=== PATIENT | male | born 1955 | race Caucasian/White ===

== ENCOUNTER 2024-06-14 09:17 | Observation (INO) ==
[2024-06-14] MEDS ORDERED: METHYLPREDNISOLONE SOD SUCC/PF 125 MG/2 ML VIAL ONE (09:23)
--- NOTE | 2024-06-14 09:26 | Emergency Department Note ---
HPI - URI/Sore Throat General Chief Complaint: SOB -Shortness of Breath Stated Complaint: SOB Time Seen by Provider: 06/14/24 09:19 Source: patient Limitations: no limitations History of Present Illness HPI Narrative: This is a 69 year old male patient that presents to the ER with c/o cough, congestion and SOB this morning. Patient states he has hx of COPD. Patient states he has been doing neb tx at home earlier this morning. Patient denies any chest pain, back pain, abdominal pain, fever, chills, numbness, tingling, weakness or N/V/D MD elicited complaint: Reports cough, rhinorrhea and nasal congestion Onset (ago): hour(s) (24) Exacerbating factors: Reports nothing Relieving factors: Reports nothing Associated symptoms: Reports rhinorrhea, nasal congestion, cough and shortness of breath Related Data Home Medications Medication Instructions Recorded Confirmed apixaban 5 mg tablet 5 mg PO BID 04/27/24 06/04/24 aspirin 81 mg tablet,delayed 81 mg PO DAILY 04/27/24 06/04/24 release cetirizine 10 mg tablet 10 mg PO DAILY 04/27/24 06/04/24 cholecalciferol (vitamin D3) 25 25 mcg PO DAILY 04/27/24 06/04/24 mcg (1,000 unit) capsule folic acid 1 mg tablet 1 mg PO DAILY 04/27/24 06/04/24 gabapentin 300 mg capsule 300 mg PO DAILY 04/27/24 06/04/24 glipizide 10 mg tablet 10 mg PO BID 04/27/24 06/04/24 losartan 25 mg tablet 25 mg PO DAILY 04/27/24 06/04/24 meloxicam 7.5 mg tablet 7.5 mg PO DAILY PRN arthritis pain 04/27/24 06/04/24 metformin 500 mg tablet 500 mg PO DAILY 04/27/24 06/04/24 metoprolol succinate 50 mg 50 mg PO DAILY 04/27/24 06/09/24 tablet,extended release 24 hr pantoprazole 40 mg tablet,delayed 40 mg PO DAILY 04/27/24 06/09/24 release (Protonix) rosuvastatin 5 mg tablet 5 mg PO BEDTIME 04/27/24 06/04/24 tamsulosin 0.4 mg capsule 0.4 mg PO DAILY 04/27/24 06/04/24 thiamine HCl (vitamin B1) 100 mg 100 mg PO DAILY 04/27/24 06/04/24 tablet vitamin B complex (Vitamins B 1 tab PO DAILY 04/27/24 06/04/24 Complex tablet) vitamins A,C,C-jbvg-nsfjdx 4,296 1 cap PO BID 04/27/24 06/04/24 mcg-226 mg-90 mg capsule (PreserVision AREDS) polyethylene glycol 3350 17 17 g PO DAILY PRN constipation 06/09/24 06/09/24 gram/dose oral powder (Miralax) Previous Rx's Medication Instructions Recorded budesonide-formoterol HFA 160 2 puff inhalation Q12H copd #10.2 04/29/24 mcg-4.5 mcg/actuation aerosol grams inhaler (Symbicort) benzonatate 200 mg capsule 200 mg PO TID PRN cough #50 caps 06/05/24 ipratropium 0.5 mg-albuterol 3 mg 3 ml inhalation RQ4 copd #50 mL 06/05/24 (2.5 mg base)/3 mL nebulization soln Allergies Allergy/AdvReac Type Severity Reaction Status Date / Time No Known Drug Allergies Allergy Verified 06/14/24 09:39 Review of Systems Status of ROS 10 or more systems reviewed and unremark able except as noted in history and below Constitutional Denies: fever, chills, change in weight, fatigue or malaise Eyes Denies: change in vision, blurry vision, blind spots, light sensitivity or eye discomfort Ears, nose, mouth, and throat Denies: throat pain, neck pain, throat swelling, difficulty swallowing or hoarseness Cardiovascular Denies: chest pain, palpitations, edema, swelling of feet/ankles, lightheadedness, shortness of breath with exertion or shortness of breath when lying down Respiratory Reports: shortness of breath and cough Gastrointestinal Denies: abdominal pain, nausea, vomiting, coffee grounds in vomit or heartburn Genitourinary Denies: painful urination, urinary frequency, urinary urgency or blood in urine Musculoskeletal Denies: back pain, neck pain, extremity pain, extremity swelling, joint pain or limited range of motion Integumentary/Breast Denies: rash, itching, redness, skin pain or skin tenderness Neurological Denies: headache, numbness in extremities, weakness in extremities or lack of coordination Psychiatric Denies: anxiety, mood swings, panic attacks, change in sleep pattern or hopelessness Endocrine Denies: excessive urination, excessive thirst, fatigue, cold intolerance or excessive sweating Hematologic/Lymphatic Denies: easy bruising, easy bleeding or enlarged lymph nodes Allergic/Immunologic Denies: hives, throat swelling, tongue swelling or facial swelling PFSH PFS Medical History GERD (gastroesophageal reflux disease) 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 has not smoked in past two days) Non-prescribed substance use: denies use What is your current living situation: I presently have a place to live Problems where you live: no known problems Highest level of school completed/degree received: decline to answer Little interest or pleasure in doing things: not at all Feeling down, depressed, or hopeless: not at all Feel stressed/tense/nervous/anxious/difficulty sleeping: not at all Life stressor details: Current medical condition Due to disability, difficulty making decisions: No Exam Constitutional: normal general appearance and no apparent distress Vital Signs - 24 hr 06/14/24 09:17 06/14/24 09:30 06/14/24 10:00 Temperature 97.8 F 97.8 F Pulse Rate 137 H 130 H 120 H Respiratory Rate 32 H 30 H 26 H Blood Pressure 150/87 114/80 111/72 Pulse Oximetry 98 99 99 Oxygen Delivery Me thod Non Rebreather Non Rebreather Nasal Cannula Oxygen Flow Rate 15 15 3 06/14/24 10:24 06/14/24 10:30 Temperature Pulse Rate 116 H Respiratory Rate 19 Blood Pressure 105/69 Pulse Oximetry 95 97 Oxygen Delivery Me thod Nasal Cannula Oxygen Flow Rate 3 HENMT: normocephalic, head/scalp atraumatic, hearing grossly normal bilatera lly, external ears normal, nasal mucous membranes normal, external nose normal, oral mucous membranes normal and oropharynx normal Eyes: PERRL, EOMs intact bilaterally, conjunctivae normal and no scleral icterus Neck/C-Spine: visual inspection normal and trachea midline Lymph: no lymphadenopathy noted Chest: inspection of chest normal Respiratory: breath sounds equal bilaterally, normal respiratory effort, auscultation abnormal (diminished breath sound), wheezing noted (scattered wheezes), no rales, no retractions, no use of accessory muscles and chest percussion normal Cardiovascular: heart rate abnormal (tachycardic), regular rhythm noted, no gallop, no rub, no murmur, no JVD, no clicks, peripheral pulses 2+ throughout and no additional abnormal heart sounds Gastrointestinal: abdomen normal to inspection, abdomen soft to palpation, nontender to palpation, nontender to percussion, nondistended, normoactive bowel sounds, no hepatosplenomegaly, no masses, no pulsatile mass, no ascites and no hernia Genitourinary: no CVA tenderness Back/Pelvis: spine normal to inspection Extremities: 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), normal to palpation, no tenderness, full ROM, no joint enlargement and no deformity Neurology: speech normal, no fasciculations noted and GCS normal Psychiatry: mental status grossly normal, oriented x3, thought process normal, cooperative and affect normal Skin: skin color normal Course Course Hospital Course: 1034: due to ongoing need for oxygen demand will admit patient to the hospital for further evaluation and treatment. Reevaluation(s) Reevaluation #1: 1102: patient feeling better, no s/s of acute distress noted Vital Signs Vital signs: Vital Signs Temperature 97.8 F 06/14/24 09:17 Pulse Rate 137 H 06/14/24 09:17 Respiratory Rate 32 H 06/14/24 09:17 Blood Pressure 150/87 06/14/24 09:17 Pulse Oximetry 98 06/14/24 09:17 Oxygen Delivery Method Non Rebreather 06/14/24 09:17 Oxygen Flow Rate 15 06/14/24 09:17 Temperature 97.8 F 06/14/24 09:30 Pulse Rate 116 H 06/14/24 10:30 Respiratory Rate 19 06/14/24 10:30 Blood Pressure 105/69 06/14/24 10:30 Pulse Oximetry 97 06/14/24 10:30 Oxygen Delivery Method Nasal Cannula 06/14/24 10:30 Oxygen Flow Rate 3 06/14/24 10:30 MDM - URI/Sore Throat Differential Diagnosis Upper Respiratory Differential Diagnosis: upper respiratory infection Medical Records [facility] Medical Records Attestation: I reviewed the patient's medical records. Lab Data Attestation: I reviewed the patient's lab results. Labs: Lab Results 06/14/24 06/14/24 Range/Units 09:30 09:30 WBC 12.4 H (3.7-9.6) K/uL RBC 5.1 (4.40-5.80) M/uL Hgb 13.7 L (14.0-17.4) gm/dL Hct 42.7 (41.3-50.1) % MCV 83.6 (81.9-96.5) fl MCH 26.9 L (27.6-33.7) pg MCHC 32.2 L (33.0-35.7) g/dl RDW 16.2 H (11.0-14.8) % Plt Count 219 (142-355) K/uL MPV 8.6 (6.0-10.4) fl Gran % 74.7 H (49.1-73.1) % Lymph % (Auto) 16.0 L (17.6-39.05) % [place] % (Auto) 7.0 (4.5-10.7) % Eos % (Auto) 1.8 (0.0-4.0) % Baso % (Auto) 0.5 (0.0-1.3) Lymph # (Auto) 2.0 (0.8-2.9) [place] # (Auto) 0.9 H (0.2-0.8) Eos # (Auto) 0.2 (0.0-0.3) Baso # (Auto) 0.1 (0.0-0.1) Absolute Gran (auto) 9.3 H (2.0-6.2) D-Dimer <100 L (100-600) ng/mL ABG pH 7.31 L (7.35-7.45) ABG pCO2 48 H (35-45) mmHg ABG pO2 302 H 653 (60-100) mmHg ABG PO2/FiO2 Ratio 0.46 ABG HCO3 24.2 (22-26) mmo1/L ABG Total CO2 25.7 mmo1/L ABG O2 Saturation 100 (92-100) % ABG Base Excess 2.4 H (-2-2) mmo1/L A-a O2 Gradient 351 mmHg Respiratory Index 1.2 H (0-1) FiO2 100 % Sodium 139 (136-145) mmol/L Potassium 4.0 (3.6-5.2) mmol/L Chloride 102.0 (98-107) mmol/L Carbon Dioxide 25 (21-32) mmol/L Anion Gap 12.0 (4-14) mEq/L BUN 13 (7-18) mg/dL Creatinine 0.9 (0.6-1.3) mg/dL Estimated GFR 92.5 (>59.9) Glucose 285 H (70-110) mg/dL Lactic Acid 2.6 H (0.27-1.43) mmol/L Calcium 8.2 L (8.5-10.1) mg/dL Total Bilirubin 0.63 (0.0-1.0) mg/dL AST 49 H (15-37) U/L ALT 57 (30-65) U/L Alkaline Phosphatase 158 H (50-136) U/L B-Natriuretic Peptide 493.0 H (0-100) pg/mL Total Protein 6.3 L (6.4-8.2) g/dL Albumin 3.1 L (3.4-5.0) g/dL COVID-19 ([facility]) Not detected (Not Detectd) Influenza Type A Ag Negative (Negative) Influenza Type B Ag Negative (Negative) Discharge Plan Discharge Chief Complaint: SOB -Shortness of Breath
[2024-06-14] MEDS ORDERED: IPRATROPIUM/ALBUTEROL SULFATE 3 ML AMPUL.NEB INH ONE (09:27)
[2024-06-14] MEDS: METHYLPREDNISOLONE SOD SUCC/PF 125 MG/2 ML VIAL IVP ONE (09:30)
[2024-06-14 09:46] LABS: Basophils #(Absolute) Auto 0.1 (0.0-0.1); Basophils%(Percent) Auto 0.5 (0.0-1.3); Eosinophils#(Absolute)Auto 0.2 (0.0-0.3); Eosinophils%(Percent) Auto 1.8 % (0.0-4.0); Granulocytes % - Auto 74.7 % (49.1-73.1); Granulocytes#(Absolute)- Auto 9.3 (2.0-6.2); Hematocrit 42.7 % (41.3-50.1); Mean Corpuscular Volume 83.6 fl (81.9-96.5); Monocytes #(Absolute)- Auto 0.9 (0.2-0.8); Platelet Count 219 K/uL (142-355); White Blood Count 12.4 K/uL (3.7-9.6)
[2024-06-14] MEDS: IPRATROPIUM/ALBUTEROL SULFATE 3 ML AMPUL.NEB INH ONE ×2 (10:22→15:07)
[2024-06-14 10:28] LABS: Base Excess ABG 2.4 mmo1/L (-2-2); Oxygen Saturation ABG 100 % (92-100); PCO2 ABG 48 mmHg (35-45); PO2 ABG 302 mmHg (60-100); pH ABG 7.31 (7.35-7.45)
[2024-06-14] MEDS ORDERED: SODIUM CHLORIDE IV ONE (10:46)
[2024-06-14] MEDS ORDERED: CEFTRIAXONE SODIUM 1 GM VIAL ONE (10:46)
[2024-06-14] MEDS ORDERED: 0.9 % SODIUM CHLORIDE MB+ 50 ML IV ONE (10:48)
[2024-06-14] MEDS: CEFTRIAXONE SODIUM 1 GM in 0.9 % SODIUM CHLORIDE MB+ 50 ML IV STA (10:48)
[2024-06-14] MEDS ORDERED: 0.9 % SODIUM CHLORIDE 250 ML IV ONE (10:51)
[2024-06-14] MEDS: 0.9 % SODIUM CHLORIDE 100 ML IV.SOLN IV ONE (11:07)
[2024-06-14] MEDS: IPRATROPIUM/ALBUTEROL SULFATE 3 ML AMPUL.NEB INH SCH (15:00)
[2024-06-14] MEDS: ATORVASTATIN CALCIUM 10 MG TABLET PO SCH (20:50)
[2024-06-14] MEDS: APIXABAN 2.5 MG TABLET PO SCH (20:50)
[2024-06-14] MEDS ORDERED: GLIPIZIDE 10 MG PO SCH (21:00)
[2024-06-14] MEDS ORDERED: ROSUVASTATIN 5 MG PO SCH (21:00)
[2024-06-15] MEDS: GUAIFENESIN/DEXTROMETHORPHAN 20/200MG/10 ML SOLUTION PO PRN (04:54)
[2024-06-15 05:37] LABS: Basophils #(Absolute) Auto 0.1 (0.0-0.1); Basophils%(Percent) Auto 0.6 (0.0-1.3); Eosinophils#(Absolute)Auto 0.1 (0.0-0.3); Eosinophils%(Percent) Auto 0.6 % (0.0-4.0); Granulocytes % - Auto 76.5 % (49.1-73.1); Granulocytes#(Absolute)- Auto 7.9 (2.0-6.2); Hematocrit 36.8 % (41.3-50.1); Mean Corpuscular Volume 82.1 fl (81.9-96.5); Monocytes #(Absolute)- Auto 0.8 (0.2-0.8); Monocytes %(Percent)- Auto 7.3 % (4.5-10.7); Platelet Count 197 K/uL (142-355); White Blood Count 10.3 K/uL (3.7-9.6)
[2024-06-15 06:10] LABS: Potassium 3.5 mmol/L (3.6-5.2)
[2024-06-15] MEDS: ASPIRIN 81 MG TABLET.DR PO SCH (09:21)
[2024-06-15] MEDS: LOSARTAN POTASSIUM 50 MG TABLET PO SCH (09:21)
[2024-06-15] MEDS: CEFTRIAXONE SODIUM 1 GM in 0.9 % SODIUM CHLORIDE MB+ 50 ML IV SCH (09:21)
[2024-06-15] MEDS: METFORMIN HCL 500 MG TABLET PO SCH (09:21)
[2024-06-15] MEDS: METHYLPREDNISOLONE SOD SUCC/PF 40 MG/ML VIAL INJ SCH (09:21)
[2024-06-15] MEDS: GLIMEPIRIDE 2 MG TABLET PO SCH (09:21)
[2024-06-15] MEDS: GABAPENTIN 300 MG CAPSULE PO SCH (09:22)
[2024-06-15] MEDS: TAMSULOSIN HCL 0.4 MG CAPSULE PO SCH (09:22)
[2024-06-15] MEDS: METOPROLOL SUCCINATE 25 MG TAB.ER.24H PO SCH (09:22)
[2024-06-15] MEDS: POTASSIUM CHLORIDE 20 MEQ TAB.ER.PRT PO ONE (11:31)
--- NOTE | 2024-06-15 14:03 | History & Physical Report ---
H&P: HPI History of Present Illness Chief complaint: copd exacerbation Narrative: This is a 69 year old male patient that presents to the ER with c/o cough, congestion and SOB this morning seen in the ER for the last 3 days daily secondary to issues with breathing and cough. Patient states he has hx of COPD poorly controlled [facility] [place] Patient states he has been doing neb tx at home earlier this morning and using his inhalers often secondary to trouble breathing and feeling smothered. Patient denies any chest pain, back pain, abdominal pain, fever, chills, numbness, tingling, weakness or N/V/D MD elicited complaint: Reports cough, rhinorrhea and nasal congestion Review of Systems Status of ROS 10 or more systems reviewed and unremark able except as noted in history and below Constitutional Reports: fatigue, night sweats and change in sleep pattern; Denies: fever, chills, change in weight or malaise Eyes Denies: change in vision, blurry vision, blind spots, light sensitivity or eye discomfort Ears, nose, mouth, and throat Reports: dry mouth; Denies: throat pain, neck pain, throat swelling, difficulty swallowing, hoarseness, mouth pain or swelling of lips/tongue Cardiovascular Reports: shortness of breath with exertion and shortness of breath when lying down; Denies: chest pain, palpitations, edema, swelling of feet/ankles or lightheadedness Respiratory Reports: shortness of breath, cough, wheezing, change in phlegm color and chest congestion; Denies: stridor, pain on inspiration or coughing up blood Gastrointestinal Reports: nausea; Denies: abdominal pain, vomiting, coffee grounds in vomit, heartburn, diarrhea, constipation, bloating or difficulty swallowing Genitourinary Denies: painful urination, urinary frequency, urinary urgency or blood in urine Musculoskeletal Denies: back pain, neck pain, extremity pain, extremity swelling, joint pain or limited range of motion Integumentary/Breast Denies: rash, itching, redness, skin pain or skin tenderness Neurological Reports: weakness in extremities (rt foot pain and sore on heel not healing and AKA left leg), behavioral changes and difficulty communicating thoughts; Denies: headache, numbness in extremities, lack of coordination, dizziness, vertigo or confusion Psychiatric Denies: anxiety, mood swings, panic attacks, change in sleep pattern or hopelessness Endocrine Denies: excessive urination, excessive thirst, fatigue, cold intolerance or excessive sweating Hematologic/Lymphatic Denies: easy bruising, easy bleeding or enlarged lymph nodes Allergic/Immunologic Reports: wheezing; Denies: hives, throat swelling, tongue swelling or facial swelling [facility] History (Updated 06/15/24 @ 14:28 by Kristine Espino DO) Urinary retention GERD (gastroesophageal reflux disease) 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 has not smoked in past two days) Non-prescribed substance use: denies use What is your current living situation: I presently have a place to live Problems where you live: no known problems Highest level of school completed/degree received: high school Little interest or pleasure in doing things: not at all Feeling down, depressed, or hopeless: not at all Feel stressed/tense/nervous/anxious/difficulty sleeping: not at all Life stressor details: Current medical condition Due to disability, difficulty making decisions: No Meds Home Medications and Allergies Home Medications Medication Instructions Recorded Confirmed Type apixaban 5 mg tablet 5 mg PO BID 04/27/24 06/04/24 History aspirin 81 mg tablet,delayed 81 mg PO DAILY 04/27/24 06/04/24 History release cetirizine 10 mg tablet 10 mg PO DAILY 04/27/24 06/04/24 History cholecalciferol (vitamin D3) 25 25 mcg PO DAILY 04/27/24 06/04/24 History mcg (1,000 unit) capsule folic acid 1 mg tablet 1 mg PO DAILY 04/27/24 06/04/24 History gabapentin 300 mg capsule 300 mg PO DAILY 04/27/24 06/04/24 History glipizide 10 mg tablet 10 mg PO BID 04/27/24 06/04/24 History losartan 25 mg tablet 25 mg PO DAILY 04/27/24 06/04/24 History meloxicam 7.5 mg tablet 7.5 mg PO DAILY PRN arthritis pain 04/27/24 06/04/24 History metformin 500 mg tablet 500 mg PO DAILY 04/27/24 06/04/24 History metoprolol succinate 50 mg 50 mg PO DAILY 04/27/24 06/09/24 History tablet,extended release 24 hr pantoprazole 40 mg tablet,delayed 40 mg PO DAILY 04/27/24 06/09/24 History release (Protonix) rosuvastatin 5 mg tablet 5 mg PO BEDTIME 04/27/24 06/04/24 History tamsulosin 0.4 mg capsule 0.4 mg PO DAILY 04/27/24 06/04/24 History thiamine HCl (vitamin B1) 100 mg 100 mg PO DAILY 04/27/24 06/04/24 History tablet vitamin B complex (Vitamins B 1 tab PO DAILY 04/27/24 06/04/24 History Complex tablet) vitamins A,C,O-uief-tudpte 4,296 1 cap PO BID 04/27/24 06/04/24 History mcg-226 mg-90 mg capsule (PreserVision AREDS) budesonide-formoterol HFA 160 2 puff inhalation Q12H copd #10.2 04/29/24 06/04/24 Rx mcg-4.5 mcg/actuation aerosol grams inhaler (Symbicort) benzonatate 200 mg capsule 200 mg PO TID PRN cough #50 caps 06/05/24 Rx ipratropium 0.5 mg-albuterol 3 mg 3 ml inhalation RQ4 copd #50 mL 06/05/24 Rx (2.5 mg base)/3 mL nebulization soln polyethylene glycol 3350 17 17 g PO DAILY PRN constipation 06/09/24 06/09/24 History gram/dose oral powder (Miralax) Allergies Allergy/AdvReac Type Severity Reaction Status Date / Time No Known Drug Allergies Allergy Verified 06/14/24 09:39 Exam Constitutional: abnormal general appearance (disheveled), (chronically ill) and (appears older than stated age), no apparent distress, average body habitus, limitations noted (behavioral limitations) and (physical limitations) and alert Vital Signs - 24 hr 06/14/24 16:00 06/14/24 16:17 06/14/24 17:05 Temperature 98.1 F Pulse Rate [Right Radial] 113 H Respiratory Rate 19 Blood Pressure [Ri ght Arm] 96/62 Pulse Oximetry 98 96 95 Oxygen Delivery Me thod Nasal Cannula Nasal Cannula Oxygen Flow Rate 3 3 Fraction of Inspir ed Oxygen 32 06/14/24 19:48 06/14/24 20:12 06/14/24 20:14 Temperature 98.2 F Pulse Rate [Right Radial] 94 H Respiratory Rate 19 Blood Pressure [Ri ght Arm] 106/73 Pulse Oximetry 96 98 98 Oxygen Delivery Me thod Room Air Nasal Cannula Oxygen Flow Rate 3 Fraction of Inspir ed Oxygen 32 06/14/24 23:36 06/14/24 23:48 06/15/24 03:41 Temperature 98.9 F Pulse Rate [Right Radial] 107 H Respiratory Rate 17 Blood Pressure [Ri ght Arm] 87/50 Pulse Oximetry 97 97 97 Oxygen Delivery Me thod Nasal Cannula Oxygen Flow Rate Fraction of Inspir ed Oxygen 06/15/24 03:49 06/15/24 08:00 06/15/24 08:57 Temperature 97.8 F 98.2 F Pulse Rate [Right Radial] 100 H 104 H Respiratory Rate 19 18 Blood Pressure [Ri ght Arm] 101/75 97/66 Pulse Oximetry 96 99 97 Oxygen Delivery Me thod Nasal Cannula Nasal Cannula Oxygen Flow Rate 3 Fraction of Inspir ed Oxygen 06/15/24 08:58 06/15/24 12:00 06/15/24 12:20 Temperature 98.4 F Pulse Rate [Right Radial] 110 H Respiratory Rate 18 Blood Pressure [Ri ght Arm] 104/76 Pulse Oximetry 97 92 L 95 Oxygen Delivery Me thod Nasal Cannula Room Air Oxygen Flow Rate 3 Fraction of Inspir ed Oxygen 32 HENMT: normocephalic, head/scalp atraumatic, hearing grossly abnormal, e xternal ears normal, nasal mucous membranes normal, external nose normal, oral mucous membranes abnormal, oropharynx abnormal, dentition abnormal and gingiva normal Eyes: PERRL, EOMs intact bilaterally, conjunctivae normal, no scleral icterus, papilledema noted and alignment normal Neck/C-Spine: trachea midline, cervical spine nontender, abnormal cervical ROM noted, supple, no meningeal signs, thyroid normal and no carotid bruits Lymph: no lymphadenopathy noted and no lymphedema noted Chest: inspection of chest normal and palpation of chest normal Respiratory: breath sounds equal bilaterally, abnormal respiratory effort (labored), auscultation abnormal (diminished breath sound), wheezing noted (scattered wheezes), no rales, retractions noted, no use of accessory muscles and chest percussion normal Cardiovascular: heart rate abnormal (tachycardic), regular rhythm noted, no gallop, no rub, no murmur, no JVD, no clicks, peripheral pulses 2+ throughout, no bruits noted and no additional abnormal heart sounds Gastrointestinal: abdomen normal to inspection, abdomen soft to palpation, nontender to palpation, nontender to percussion, nondistended, normoactive bowel sounds, no hepatosplenomegaly, no masses, no pulsatile mass, no ascites and no hernia Genitourinary: no CVA tenderness, bladder normal to palpation and external appearance normal Back/Pelvis: no thoracic spine tenderness, no lumbar spine tenderness, thoracic spine ROM abnormal and lumbar spine ROM abnormal Extremities: 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), normal to palpation, tenderness noted (right foot and heel painful to touch), abnormal ROM noted (left AKA), no joint enlargement and deformity noted Neurology: office manager II-XII intact, no movement abnormality noted, sensory deficit noted, deep tendon reflexes as noted:, gait abnormality noted (waiting on a prosthesis) (unable to access), speech normal, coordination abnormality noted, no fasciculations noted and GCS normal Psychiatry: mental status abnormal other, oriented x3, thought process abnormality noted, cooperative, affect normal, psychomotor abnormality noted and memory normal Life stressors: financial matters Life stressor details: needing more care than he can get at home and needing rehab Due to disability, difficulty making decisions: Yes Skin: skin color normal, no rash, no lesions, ecchymosis noted, wound(s) noted (boggy right heal and stage 1 red toes cold) Reports (superficial), skin turgor abnormal Reports (tenting), no jaundice, no petechiae, no mottling and nails abnormality noted Assessment and Plan Assessment and Plan (1) Constipation: Qualifiers: Constipation type: unspecified constipation type Qualified Code(s): K59.00 - Constipation, unspecified Code(s): K59.00 - Constipation, unspecified (2) Hypoxemia: Code(s): R09.02 - Hypoxemia (3) COPD with exacerbation: Code(s): J44.1 - Chronic obstructive pulmonary disease with (acute) exacerbation (4) Diabetes type 2 with atherosclerosis of arteries of extremities: Code(s): E11.51 - Type 2 diabetes mellitus with diabetic peripheral angiopathy without gangrene; I70.209 - Unspecified atherosclerosis of council arteries of extremities, unspecified extremity (5) CHF (congestive heart failure): Qualifiers: Heart failure type: unspecified Heart failure chronicity: unspecified Qualified Code(s): I50.9 - Heart failure, unspecified Code(s): I50.9 - Heart failure, unspecified (6) Hypertension: Qualifiers: Hypertension type: primary hypertension Qualified Code(s): I10 - Esse ntial (primary) hypertension Code(s): I10 - Essential (primary) hypertension Plan Apixaban 5 mg PO BID Cetirizine Hcl 10 mg PO Daily Gabapentin 300 mg PO Daily Glimepiride 8 mg PO Daily Losartan Potassium 25 mg PO Daily Metformin Hcl 500 mg PO Daily HOLD Metoprolol Succinate 25 mg PO BID Atorvastatin Calcium 10 mg PO Bedtime Tamsulosin Hcl 0.4 mg PO Daily Vitamins A,C,F-Xxms-Qijwfp 4,296 mg (1) cap PO BID Albuterol Sulfate 3 ml INH RQ4 PRN Methylprednisolone Sodium Succinate 80 mg INJ Q8H Acetaminophen 500 mg PO Q6H PRN Insulin Regular sliding scale SUBQ PRN Chlorphenir/Hydrocodone Polistirex 5 mg PO Q12H PRN IV FLUIDS 0.9% CONTINUOUS duo nebs every 4 hours pulmicort every 12 hours cardiac and continuous pulse ox Results Labs Labs: CBC WBC 10.3 K/uL (3.7-9.6) H 06/15/24 04:45 RBC 4.5 M/uL (4.40-5.80) 06/15/24 04:45 Hgb 12.3 gm/dL (14.0-17.4) L 06/15/24 04:45 Hct 36.8 % (41.3-50.1) L 06/15/24 04:45 MCV 82.1 fl (81.9-96.5) 06/15/24 04:45 MCH 27.5 pg (27.6-33.7) L 06/15/24 04:45 MCHC 33.5 g/dl (33.0-35.7) 06/15/24 04:45 RDW 16.3 % (11.0-14.8) H 06/15/24 04:45 Plt Count 197 K/uL (142-355) 06/15/24 04:45 MPV 8.5 fl (6.0-10.4) 06/15/24 04:45 Gran % 76.5 % (49.1-73.1) H 06/15/24 04:45 Lymph % (Auto) 15.0 % (17.6-39.05) L 06/15/24 04:45 [place] % (Auto) 7.3 % (4.5-10.7) 06/15/24 04:45 Eos % (Auto) 0.6 % (0.0-4.0) 06/15/24 04:45 Baso % (Auto) 0.6 (0.0-1.3) 06/15/24 04:45 Lymph # (Auto) 1.5 (0.8-2.9) 06/15/24 04:45 [place] # (Auto) 0.8 (0.2-0.8) 06/15/24 04:45 Eos # (Auto) 0.1 (0.0-0.3) 06/15/24 04:45 Baso # (Auto) 0.1 (0.0-0.1) 06/15/24 04:45 Absolute Gran (auto) 7.9 (2.0-6.2) H 06/15/24 04:45 BMP Sodium 141 mmol/L (136-145) 06/15/24 04:45 Potassium 3.5 mmol/L (3.6-5.2) L 06/15/24 04:45 Chloride 104.0 mmol/L (98-107) 06/15/24 04:45 Carbon Dioxide 28 mmol/L (21-32) 06/15/24 04:45 Anion Gap 9.0 mEq/L (4-14) 06/15/24 04:45 BUN 14 mg/dL (7-18) 06/15/24 04:45 Creatinine 0.8 mg/dL (0.6-1.3) 06/15/24 04:45 Estimated GFR 95.8 (>59.9) 06/15/24 04:45 Glucose 144 mg/dL (70-110) H 06/15/24 04:45 Calcium 8.5 mg/dL (8.5-10.1) 06/15/24 04:45 Total Bilirubin 0.46 mg/dL (0.0-1.0) 06/15/24 04:45 AST 24 U/L (15-37) 06/15/24 04:45 ALT 46 U/L (30-65) 06/15/24 04:45 Alkaline Phosphatase 123 U/L (50-136) 06/15/24 04:45 Total Protein 5.9 g/dL (6.4-8.2) L 06/15/24 04:45 Albumin 2.8 g/dL (3.4-5.0) L 06/15/24 04:45 Cardiac Enzymes Troponin I High Sens 51.80 ng/L (4.0-60.4) 06/14/24 09:50 Liver Function Total Bilirubin 0.46 mg/dL (0.0-1.0) 06/15/24 04:45 AST 24 U/L (15-37) 06/15/24 04:45 ALT 46 U/L (30-65) 06/15/24 04:45 Alkaline Phosphatase 123 U/L (50-136) 06/15/24 04:45 Total Protein 5.9 g/dL (6.4-8.2) L 06/15/24 04:45 Albumin 2.8 g/dL (3.4-5.0) L 06/15/24 04:45 ABG ABG results: 06/14/24 09:30 ABG pH 7.31 L ABG pCO2 48 H ABG pO2 653 ABG HCO3 24.2 ABG Total CO2 25.7 ABG O2 Saturation 100 ABG Base Excess 2.4 H Attestation: I have reviewed the pertinent ABG results. Pulse Oximetry Attestation: I have reviewed the pertinent pulse oximetry results. ECG Attestation: I have reviewed the pertinent ECG results. Imaging Imaging ordered: Chest x-ray My impression: no significant change from - chest xray Radiologist's impression: EXAM: Portable chest HISTORY: Chest pain COMPARISON: 06/10/2024 FINDINGS: Heart size is normal. [place] are normal. Lung nation are clear. No pleural effusions or pneumothoraces. Bony thorax is unremarkable. IMPRESSION: No significant abnormality identified
[2024-06-15] MEDS: AZITHROMYCIN 500 MG 500 MG in 0.9 % SODIUM CHLORIDE 250 ML IV SCH (15:27)
[2024-06-15] MEDS: 0.9 % SODIUM CHLORIDE 1000 ML 1,000 ML IV SCH (15:27)
[2024-06-15] MEDS ORDERED: IPRATROPIUM BROMIDE 0.2 MG/ML SOLUTION INH SCH (16:00)
[2024-06-15 16:43] LABS: Specific Gravity Urine 1.015 (1.001-1.035); Urine Appearance HAZY (CLEAR); Urine Blood NEGATIVE (NEG - TRACE); Urine Color DARK YELLOW (STRAW/YELL.); Urine Urobilinogen Normal (NORMAL)
[2024-06-15 16:46] LABS: Amphetamine Screen Urine NEG. (NEGATIVE); Cannabinoid Screen Urine NEG. (NEGATIVE); Cocaine Screen Urine NEG. (NEGATIVE); Methadone Screen Urine NEG. (NEGATIVE); Opiate Screen Urine NEG. (NEGATIVE)
[2024-06-15] MEDS: METOPROLOL TARTRATE 25 MG TABLET PO SCH (17:12)
[2024-06-15 17:39] LABS: PCO2 ABG 38 mmHg (35-45); PO2 ABG 101 mmHg (60-100); pH ABG 7.43 (7.35-7.45)
[2024-06-15 17:40] LABS: Oxygen Saturation ABG 98 % (92-100)
[2024-06-15] MEDS: levalbuterol HCL 1.25 MG/3 ML VIAL.NEB INH SCH (19:00)
[2024-06-15] MEDS: BUDESONIDE 0.5 MG/2 ML AMPUL.NEB INH SCH (19:00)
[2024-06-15] MEDS: BUDESONIDE 0.5 MG/2 ML AMPUL.NEB INH ONE (19:03)
[2024-06-15] MEDS: levalbuterol HCL 1.25 MG/3 ML VIAL.NEB ONE (19:03)
[2024-06-15] MEDS: MONTELUKAST SODIUM 10 MG TABLET PO SCH (20:37)
[2024-06-16] MEDS: ACETAMINOPHEN 500 MG TABLET PO PRN (00:27)
[2024-06-16 00:39] VITALS: RESP 19
[2024-06-16 05:53] LABS: Basophils%(Percent) Auto 0.1 (0.0-1.3); Granulocytes % - Auto 88.6 % (49.1-73.1); Granulocytes#(Absolute)- Auto 7.6 (2.0-6.2); Mean Corpuscular Volume 83.9 fl (81.9-96.5); Monocytes #(Absolute)- Auto 0.2 (0.2-0.8); Monocytes %(Percent)- Auto 1.8 % (4.5-10.7); Platelet Count 194 K/uL (142-355); White Blood Count 8.6 K/uL (3.7-9.6)
[2024-06-16 06:10] LABS: Potassium 4.6 mmol/L (3.6-5.2)
[2024-06-16 06:28] LABS: Base Excess ABG 2.3 mmo1/L (-2-2); Oxygen Saturation ABG 94 % (92-100); PCO2 ABG 43 mmHg (35-45); PO2 ABG 70 mmHg (60-100); pH ABG 7.41 (7.35-7.45)
[2024-06-16 07:56] VITALS: BP 104/70; TEMP 97.5
[2024-06-16] MEDS ORDERED: TIOTROPIUM OLODATEROL INH SCH (09:00)
[2024-06-16] MEDS ORDERED: [UNRECOGNIZED DRUG - OTHER] INH SCH (09:00)
[2024-06-16] MEDS: FERROUS SULFATE 325 MG TABLET PO SCH (09:51)
[2024-06-16] MEDS: MAGNESIUM OXIDE 400 MG TABLET PO ONE (09:51)
[2024-06-16 11:06] VITALS: PULSE 100
--- NOTE | 2024-06-16 14:55 | Discharge Summary ---
DS: Providers Provider Date of admission: 06/14/24 10:55 Primary care physician: NO PCP Provider Consults: 06/15/24 10:56 Consult to Occupational Therapy Routine Comment: Consulting Provider: Reason for consultation: evaluate for placement and rehab Physician Instructions: evaluate and treat Consult to Physical Therapy Routine Comment: Consulting Provider: Reason for consultation: evaluate for placement and rehab Physician Instructions: evaluate and treat Consult to Pulmonary Rehabilitation Routine Comment: Consulting Provider: Physician Instructions: Reason for consultation: COPD with frequent admits 06/15/24 11:09 Consult to Pulmonary Rehabilitation Routine Comment: Consulting Provider: Physician Instructions: Reason for consultation: copd 3 hospitalization in 2 months for COPD DS: Diagnosis Discharge Diagnosis (1) Constipation: Qualifiers: Constipation type: unspecified constipation type Qualified Code(s): K59.00 - Constipation, unspecified (2) Hypoxemia: Assessment and plan: Resolved. (3) COPD with exacerbation: Assessment and plan: Levalbuterol Hcl 1.25 mg INH RQ6 Budesonide 1 mg INH RBID Azithromycin 500 mg in Sodium Chloride 250 mls @ 250 mls/hr IV Daily Ipratropium [place] 0.2 mg INH RQ4 Stiolto Respimat (2) INH Daily Montelukast Sodium 10 mg PO Bedtime Guaifenesin 10 ml PO Q12H PRN (4) Diabetes type 2 with atherosclerosis of arteries of extremities: Assessment and plan: Metformin Hcl 500 mg PO Daily Insulin Regular per sliding scale SUBQ PRN Glimepiride 8 mg PO Daily (5) CHF (congestive heart failure): Qualifiers: Heart failure chronicity: unspecified Heart failure type: unspecified Qualified Code(s): I50.9 - Heart failure, unspecified (6) Hypertension: Assessment and plan: Losartan Potassium 25 mg PO Daily Metoprolol Succinate 50 mg PO Daily Qualifiers: Hypertension type: primary hypertension Qualified Code(s): I10 - Es sential (primary) hypertension (7) Iron deficiency anemia due to dietary causes: Assessment and plan: Ferrous Sulfate 325 mg PO Daily (8) Ischemic ulcer of right heel due to atherosclerosis: Assessment and plan: Ceftriaxone Sodium 1 gm in Sodium Chloride 50 mls @ 100 mls/hr IV Daily (9) Decubitus ulcer, heel, right, unstageable: Assessment and plan: Ceftriaxone Sodium 1 gm in Sodium Chloride 50 mls @ 100 mls/hr IV Daily (10) Peripheral arterial disease: (11) GERD (gastroesophageal reflux disease): Assessment and plan: Magnesium Oxide 400 mg PO ONCE Qualifiers: Esophagitis presence: esophagitis presence not specified Qualified Code(s): K21.9 - Gastro-esophageal reflux disease without esophagitis Plan O2 Study done - Approved for home O2 Discharge home back to home health with wound care DS: Summary Hospital Course Hospital Course: This is a 69 year old male patient that presented to the ER with c/o cough, congestion and SOB the morning of 04/15/2024. Seen in the ER for the last 3 days daily secondary to issues with breathing and cough. Patient states he has hx of COPD poorly controlled [facility] [place] Patient states he has been doing neb tx at home earlier that morning and using his inhalers often secondary to trouble breathing and feeling smothered. Patient denies any chest pain, back pain, abdominal pain, fever, chills, numbness, tingling, weakness or N/V/D. MD elicited complaint: Reports cough, rhinorrhea and nasal congestion. Admitted to Med/Surg for observation and treatment. Day 1 of hospital stay, lung sounds have improved with Levalbuterol Hcl 1.25 mg INH RQ6, Budesonide 1 mg INH RBID, Azithromycin 500 mg in Sodium Chloride 250 mls @ 250 mls/hr IV Daily, Ipratropium [place] 0.2 mg INH RQ4, Stiolto Respimat (2) INH Daily, Montelukast Sodium 10 mg PO Bedtime, and Guaifenesin 10 ml PO Q12H PRN. Respiratory performed an O2 Qualifier for home O2; patient O2 dropped to 80% during screen, results indicate the need for home O2. Patient is ready for discharge home back to [facility], who will perform wound care on right foot, and [facility]. Patient is being referred to [facility] due to peripheral arterial disease. New PCP to be set up with [facility] and a post hospital follow up appointment within 5-7 days of discharge. Patient discharged to get oxygen at home as he only needs prn and with sleep and he returned with dyspnea even though sats was 98-100% per EMS crew. patient got Certified to bring oxygen to the hospital and he went back home and returned to the ER after EMS went out to him 2 more times and the vitals were stable and he seemed to be wanting to talk more than he was ill. requesting care home placement again and will talk to [facility] in the ER and see what can be set up for the patient or if the BHU may be a better option Time spent discussing smoking cessation with patient: more than 10 minutes Status at Discharge Functional status at discharge: wheelchair bound Overall status at discharge: patient is progressing back to baseline Time Spent with Patient Time attestation: Total time spent providing and/or coordinating discharge services: Time spent: greater than 30 minutes Exam Exam: Patient in low ledezma's position upon entering room for exam. He is in positive disposition today and states he is feeling a lot better than previous day. Constitutional: normal general appearance, no apparent distress, abnormal body habitus (overweight), limitations noted (physical limitations) and alert Vital Signs - 24 hr 06/15/24 12:00 06/15/24 12:20 06/15/24 16:00 Temperature 98.4 F 98.5 F Pulse Rate Pulse Rate [Right Radial] 110 H 108 H Respiratory Rate 18 19 Blood Pressure [Ri ght Arm] 104/76 105/79 Pulse Oximetry 92 L 95 97 Oxygen Delivery Me thod Room Air Room Air Oxygen Flow Rate Fraction of Inspir ed Oxygen 06/15/24 16:13 06/15/24 19:01 06/15/24 19:01 Temperature 98.5 F Pulse Rate Pulse Rate [Right Radial] 108 H Respiratory Rate 19 Blood Pressure [Ri ght Arm] 105/79 Pulse Oximetry 94 L 95 95 Oxygen Delivery Me thod Room Air Nasal Cannula Oxygen Flow Rate 2 Fraction of Inspir ed Oxygen 28 06/15/24 20:00 06/15/24 20:00 06/16/24 00:00 Temperature 97.5 F L 97.7 F Pulse Rate Pulse Rate [Right Radial] 105 H 90 Respiratory Rate 20 20 19 Blood Pressure [Ri ght Arm] 114/75 95/65 Pulse Oximetry 94 L 95 Oxygen Delivery Me thod Room Air Nasal Cannula Oxygen Flow Rate 2 Fraction of Inspir ed Oxygen 06/16/24 01:13 06/16/24 04:00 06/16/24 07:55 Temperature 97.5 F L Pulse Rate Pulse Rate [Right Radial] 92 H 96 H Respiratory Rate 19 19 Blood Pressure [Ri ght Arm] 104/70 Pulse Oximetry 96 97 97 Oxygen Delivery Me thod Nasal Cannula Room Air Oxygen Flow Rate 2 Fraction of Inspir ed Oxygen 06/16/24 08:30 06/16/24 08:30 06/16/24 11:05 Temperature Pulse Rate 100 H Pulse Rate [Right Radial] Respiratory Rate Blood Pressure [Ri ght Arm] Pulse Oximetry 95 95 96 Oxygen Delivery Me thod Room Air Nasal Cannula Oxygen Flow Rate 2 Fraction of Inspir ed Oxygen 21 28 HENMT: normocephalic, head/scalp atraumatic, hearing grossly abnormal, external ears normal, nasal mucous membranes normal, external nose normal, oral mucous membranes abnormal, oropharynx abnormal, dentition abnormal and gingiva normal Eyes: PERRL, EOMs intact bilaterally, conjunctivae normal, no scleral icterus, papilledema noted and alignment normal Neck/C-Spine: visual inspection normal, trachea midline, cervical spine nontender, abnormal cervical ROM noted, supple, no meningeal signs, thyroid normal and no carotid bruits Lymph: no lymphadenopathy noted and no lymphedema noted Chest: inspection of chest normal and palpation of chest normal Respiratory: breath sounds equal bilaterally, normal respiratory effort, clear to auscultation bilaterally, no wheezes, no rales, no retractions, no use of accessory muscles and chest percussion normal Cardiovascular: heart rate abnormal (tachycardic), regular rhythm noted, no gallop, no rub, no murmur, no JVD, no clicks, peripheral pulses 2+ throughout, no bruits noted and no additional abnormal heart sounds Gastrointestinal: abdomen normal to inspection, abdomen soft to palpation, nontender to palpation, nontender to percussion, nondistended, normoactive bowel sounds, no hepatosplenomegaly, no masses, no pulsatile mass, no ascites and no hernia Genitourinary: no CVA tenderness, bladder normal to palpation and external appearance normal Back/Pelvis: spine normal to inspection, no thoracic spine tenderness, no lumbar spine tenderness, thoracic spine ROM abnormal and lumbar spine ROM abnormal Extremities: 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), normal to palpation, tenderness noted (right foot and heel painful to touch), abnormal ROM noted (left AKA), no joint enlargement and deformity noted Neurology: shoe cementer II-XII intact, no movement abnormality noted, sensory deficit noted, deep tendon reflexes as noted:, gait abnormality noted (waiting on a prosthesis) (unable to access), speech normal, coordination abnormality noted, no fasciculations noted and GCS normal Psychiatry: mental status abnormal other, oriented x3, thought process abnormality noted, cooperative, affect normal, psychomotor abnormality noted and memory normal Skin: skin color normal, no rash, no lesions, ecchymosis noted, wound(s) noted (boggy right heal and stage 1 red toes cold) Reports (superficial), skin turgor abnormal Reports (tenting), no jaundice, no petechiae, no mottling and nails abnormality noted DS: Data Data Completed and Pending Labs on day of discharge: Labs from last 24 hours 06/16/24 06/16/24 06/16/24 06:00 06:00 05:25 WBC 8.6 RBC 4.8 Hgb 13.2 L Hct 40.0 L MCV 83.9 MCH 27.6 MCHC 32.9 L RDW 16.3 H Plt Count 194 MPV 7.9 Gran % 88.6 H Lymph % (Auto) 9.5 L Lar[place] % (Auto) 1.8 L Eos % (Auto) 0.0 Baso % (Auto) 0.1 Lymph # (Auto) 0.8 [place] # (Auto) 0.2 Eos # (Auto) 0.0 Baso # (Auto) 0.0 Absolute Gran (auto) 7.6 H ABG pH 7.41 ABG pCO2 43 ABG pO2 96 70 ABG PO2/FiO2 Ratio 0.73 ABG HCO3 27.3 H ABG Total CO2 28.6 ABG O2 Saturation 94 ABG Base Excess 2.3 H A-a O2 Gradient 26 Respiratory Index 0.4 FiO2 21 Sodium 139 Potassium 4.6 Chloride 102.0 Carbon Dioxide 30 Anion Gap 7.0 BUN 15 Creatinine 0.8 Estimated GFR 95.8 Glucose 228 H Calcium 8.3 L Phosphorus 3.5 Magnesium 1.6 L Iron 23 L TIBC 321 Ferritin 38 Total Bilirubin 0.53 AST 25 ALT 59 Alkaline Phosphatase 121 B-Natriuretic Peptide 369.0 H Total Protein 6.3 L Albumin 3.0 L Urine Color Urine Appearance Ur Specific [place] Urine Protein Urine Glucose (UA) Urine Ketones Urine Occult Blood Urine Nitrite Urine Bilirubin Urine Urobilinogen Ur Leukocyte Esterase Fluid pH Urine Opiates Screen Urine Methadone Screen Barbiturate Screen Ur Phencyclidine Scrn Amphetamines Screen U Benzodiazepines Scrn Urine Cocaine Screen U Marijuana (THC) Screen 06/15/24 06/15/24 06/15/24 17:35 17:35 16:22 WBC RBC Hgb Hct MCV MCH MCHC RDW Plt Count MPV Gran % Lymph % (Auto) Larue % (Auto) Eos % (Auto) Baso % (Auto) Lymph # (Auto) [place] # (Auto) Eos # (Auto) Baso # (Auto) Absolute Gran (auto) ABG pH 7.43 ABG pCO2 38 ABG pO2 152 101 H ABG PO2/FiO2 Ratio 0.66 ABG HCO3 25.2 ABG Total CO2 26.4 ABG O2 Saturation 98 ABG Base Excess 1.0 A-a O2 Gradient 51 Respiratory Index 0.5 FiO2 28 Sodium Potassium Chloride Carbon Dioxide Anion Gap BUN Creatinine Estimated GFR Glucose Calcium Phosphorus Magnesium Iron TIBC Ferritin Total Bilirubin AST ALT Alkaline Phosphatase B-Natriuretic Peptide Total Protein Albumin Urine Color Dark yellow Urine Appearance Hazy Ur Specific [place] 1.015 Urine Protein Negative Urine Glucose (UA) 4+ Urine Ketones Moderate Urine Occult Blood Negative Urine Nitrite Negative Urine Bilirubin Negative Urine Urobilinogen Normal Ur Leukocyte Esterase Negative Fluid pH 6.0 Urine Opiates Screen Neg. Urine Methadone Screen Neg. Barbiturate Screen Neg. Ur Phencyclidine Scrn Neg. Amphetamines Screen Neg. U Benzodiazepines Scrn Neg. Urine Cocaine Screen Neg. U Marijuana (THC) Screen Neg. Imaging Chest x-ray: Radiologist's impression: Portable chest Date of Service: 06/14/24 HISTORY: Chest pain COMPARISON: 06/10/2024 FINDINGS: Heart size is normal. Avelina are normal. Lung nation are clear. No pleural effusions or pneumothoraces. Bony thorax is unremarkable. IMPRESSION: No significant abnormality identified Discharge Plan Discharge Disposition: Home, Self-Care Condition: Improved Discharge Medications: New methylprednisolone [Medrol (Jagdeep)] 4 mg tablets,dose pack See Rx Instructions .ROUTE .COMPLEX Qty: 21 0RF Rx Instructions: for 6 days Santyl 250 unit/gram ointment 1 applic topical DAILY Qty: 15 0RF ferrous sulfate 325 mg (65 mg iron) tablet 325 mg PO DAILY Qty: 30 0RF Continued aspirin 81 mg tablet,delayed release (DR/EC) 81 mg PO DAILY cetirizine 10 mg tablet 10 mg PO DAILY cholecalciferol (vitamin D3) 25 mcg (1,000 unit) capsule 25 mcg PO DAILY apixaban 5 mg tablet 5 mg PO BID folic acid 1 mg tablet 1 mg PO DAILY gabapentin 300 mg capsule 300 mg PO DAILY losartan 25 mg tablet 25 mg PO DAILY pantoprazole [Protonix] 40 mg tablet,delayed release (DR/EC) 40 mg PO BID PreserVision AREDS 4,296 mcg-226 mg-90 mg capsule 1 cap PO BID tamsulosin 0.4 mg capsule 0.4 mg PO BEDTIME thiamine HCl (vitamin B1) 100 mg tablet 100 mg PO DAILY vitamin B complex [Vitamins B Complex] Tablet 1 tab PO DAILY metformin 500 mg tablet 500 mg PO DAILY Rx Instructions: With food glipizide 10 mg tablet 10 mg PO BID Rx Instructions: Give 30 minutes before meals. rosuvastatin 5 mg tablet 5 mg PO BEDTIME budesonide-formoterol [Symbicort] 160-4.5 mcg/actuation HFA aerosol inhaler 2 puff inhalation Q12H Qty: 10.2 0RF benzonatate 200 mg capsule 200 mg PO TID PRN (Reason: cough) Qty: 50 0RF polyethylene glycol 3350 [Miralax] 17 gram/dose powder 17 g PO DAILY PRN (Reason: constipation) Patient Comments: PT REPORTS HE TAKES PRN Rx Instructions: Needs to be taken in at least 8 ounces of fluid. meloxicam 15 mg tablet 15 mg PO DAILY PRN (Reason: arthritis pain) metoprolol tartrate 25 mg tablet 25 mg PO DAILY Rx Instructions: Hold if SBP <110, DBP <65, or HR <60. Stiolto Respimat 2.5-2.5 mcg/actuation mist 2 inh inhalation DAILY levalbuterol HCl 0.63 mg/3 mL solution for nebulization 0.63 mg inhalation Q6H PRN (Reason: shortness of breath or wheezing) Rx Instructions: DNExceed 3 doses/24h montelukast 10 mg tablet 10 mg PO QPM Discharge Orders: Discharge Order (Routine); Ordered 06/16/24 Ordered By: Kristine Espino Activity: as per physical therapy Diet: diabetic diet and low fat, low cholesterol Interventions: Discharge Assessment Last Done: 06/16/24 11:17 MED/SURG & ICU Observation Charge Sheet Last Done: 06/16/24 06:30 Activity Restrictions/Additional Instructions: increase water intake vascular surgeon referral [facility] to [facility] by patient as he requested 7 day follow up at [facility] per patient request for local doctor wound care with [place] santyl applied daily with fluff dressing and education on elevating heel. home health and continue [facility] services to be resumed oxygen home arranged as failed activity oxygen sats dropped to 80% continue to use xoponex at home Forms: Portal/Health Info Access Inst Follow-Ups: [facility] [Other] (REFERRAL SENT PER DR. ESPINO. [facility] WILL CONTACT PATIENT WITH APPOINTMENT) Kristine Espino DO [Physician] - 06/22/24 10:45 am Provider,NO PCP [Primary Care Provider] - Discharge Date/Time: 06/16/24 12:27
== END 2024-06-16 12:27 | disposition home or self-care (01) ==
LOC: MS 09:17 → ED 09:17 → MS 11:45
PROVIDERS: ADMIT Family Medicine; ATTEND Family Medicine
DX: D50.8 Other iron deficiency anemias; I50.9 Heart failure, unspecified; J44.1 Chronic obstructive pulmonary disease with (acute) exacerbation; E11.51 Type 2 diabetes mellitus with diabetic peripheral angiopathy without gangrene; K21.9 Gastro-esophageal reflux disease without esophagitis; I11.0 Hypertensive heart disease with heart failure; R07.89 Other chest pain; I70.209 Unspecified atherosclerosis of native arteries of extremities, unspecified extremity; Z87.891 Personal history of nicotine dependence; L89.610 Pressure ulcer of right heel, unstageable; R09.02 Hypoxemia; K59.00 Constipation, unspecified; R09.81 Nasal congestion; R05.9 Cough, unspecified; R06.02 Shortness of breath; I70.234 Atherosclerosis of native arteries of right leg with ulceration of heel and midfoot